=== PATIENT | male | born 1995 | race Caucasian/White ===

== ENCOUNTER 2024-09-19 15:08 | Emergency (ER) | payer BC ==
[~2024-09-19] VITALS: Ht 172.7 cm; Wt 97.3 kg
[2024-09-19 15:18] VITALS: PULSE 74; RESP 18; O2SAT 99
[2024-09-19] MEDS ORDERED: PRED20TA PO (17:22)
[2024-09-19] MEDS ORDERED: VALA100031 PO (17:22)
[2024-09-19] MEDS: predniSONE 20 mg tablet PO ONE (17:39)
[2024-09-19 17:44] VITALS: TEMP 98.7
== END 2024-09-19 17:41 | disposition home or self-care (01) ==
LOC: ER 15:09
DX: G51.0 Bell's palsy (principal); Z79.899 Other long term (current) drug therapy
CPT/HCPCS: 82948; 99283; J7512